=== PATIENT | male | born 1970 | race Caucasian/White ===

== ENCOUNTER 2016-08-30 15:32 | Emergency (ER) | payer OTHER ==
[~2016-08-30] VITALS: Ht 182.9 cm; Wt 81.6 kg
[2016-08-30 15:35] VITALS: BP 150/88; PULSE 87; RESP 18; TEMP 97; O2SAT 97
--- NOTE | 2016-08-30 15:35 | NUR ---
BROUGHT BACK TO BED #8 BY PEE DUNN AND PLACED IN ROOM.
--- NOTE | 2016-08-30 15:37 | NUR ---
PT TRIAGED AND REPORT GIVEN TO CHRISSY
--- NOTE | 2016-08-30 15:50 | NUR ---
Patient stated he has a headache for the past 3 months, pt stated that there is now tingling and numbness the the left side of the head and ear. Pt stated that he is able to eat and has no trouble swallowing. Pt was waiting for referral for a CT from his PCP. No injuries/complaints per pt and noted
[2016-08-30] MEDS ORDERED: NACL 0.9% 1,000 ML IV ONE (16:00)
[2016-08-30] MEDS ORDERED: KETOROLAC TROMETHAMINE 30 MG VIAL IVP ONE (16:00)
--- NOTE | 2016-08-30 16:28 | NUR ---
TAKEN TO RADIOLOGY VIA AMBULATORY
[2016-08-30 16:59] LABS: BASOPHILS % (AUTO) 0.4 % (0.0-2.0); EOSINOPHILS # (AUTO) 0.1 K/uL (0.0-0.4); HEMOGLOBIN 14.6 g/dL (14.0-18.0); LYMPHOCYTES # (AUTO) 1.1 K/uL (1.0-5.5); LYMPHOCYTES % (AUTO) 20.6 % (20.5-51.5); MEAN CORPUSCULAR HEMOGLOBIN 29 pg (27-31); MEAN CORPUSCULAR HGB CONC 34 % (32-36); MEAN CORPUSCULAR VOLUME 85 fL (79.0-98.0); MONOCYTES # (AUTO) 0.6 K/uL (0.0-1.0); MONOCYTES % (AUTO) 11.6 % (1.7-9.3); NEUTROPHILS # (AUTO) 3.3 K/uL (1.8-7.7); NEUTROPHILS % (AUTO) 65.4 % (40.0-70.0); PLATELET COUNT (AUTO) 168 K/uL (130-430); RED BLOOD CELL COUNT(AUTO) 5.04 MIL/uL (4.2-6.2); RED CELL DISTRIBUTION WIDTH 12.1 % (9.0-15.0); WHITE BLOOD COUNT (AUTO) 5.1 K/uL (4.8-10.8)
[2016-08-30 17:07] LABS: CALCIUM 8.7 mg/dL (8.4-11.0); CREATININE 1.11 mg/dL (0.55-1.30); POTASSIUM 3.7 mmol/L (3.5-5.1)
[2016-08-30 17:11] LABS: ALBUMIN 4.1 g/dL (3.4-4.8); TOTAL PROTEIN, SERUM 7.6 g/dL (6.4-8.3)
[2016-08-30 17:43] LABS: ERYTHROCYTE SEDIMENTATION RATE 6 MM/HR (0-15)
--- NOTE | 2016-08-30 17:50 | NUR ---
Pt is resting comfortably with no noted SOB or distress
[2016-08-30] MEDS ORDERED: ACETAMINOPHEN 500 MG TABLET PO ONE (18:00)
[2016-08-30 18:30] VITALS: BP 131/73; PULSE 74; RESP 18; TEMP 98.9; O2SAT 96
--- NOTE | 2016-08-30 18:30 | NUR ---
Patient given written and verbal discharge instructions and verbalizes understanding. ER MD discussed with patient the results and treatment provided. Patient in stable condition. ID arm band removed. IV catheter removed intact and dressing applied, no active bleeding. Rx of tylenol given. Patient educated on pain management and to follow up with PMD. Pain Scale 5. Opportunity for questions provided and answered. Pain medication was given for at home
== END 2016-08-30 18:30 | disposition home or self-care (01) ==
LOC: SED 15:32
DX: G89.29 Other chronic pain (principal); R51 Headache
CPT/HCPCS: 36415; 70450; 80053; 83605; 85025; 85651; 87040; 96361; 96374; 99285; J1885; J7030